=== PATIENT | female | born 1955 | race Caucasian/White ===

== ENCOUNTER 2019-05-06 04:46 | Emergency (ER) | payer MEDICAID ==
[~2019-05-06] VITALS: Ht 162.6 cm; Wt 80.9 kg
[~2019-05-06 04:46] MED LIST: ASPI-903 PO; IBUP-1542 PO; LANT3I SC; LEVO75TA5 PO; LISI-313 PO; OXYC-279 PO; SITA1TAB5 PO
[2019-05-06 04:52] VITALS: Ht 162.6 cm; Wt 80.9 kg
[2019-05-06] MEDS ORDERED: ONDANSETRON 4 MG INJ IV STA (05:14)
[2019-05-06] MEDS ORDERED: morphine 4 MG/ML VIAL IV STA (05:14)
[2019-05-06 06:45] VITALS: BP 129/64; PULSE 59; RESP 18
--- NOTE | 2019-05-06 08:16 | ERD ---
ER Documentation Chief Complaint Chief Complaint LEFT ANKLE INJ S/P MECH FALL X5MINS AGO; ON BLOOD THINNERS; DEFORMITY NOTED HPI This is a 63-year-old woman complaining of left ankle pain and swelling after mechanical fall down some stairs. She does recall the entire episode and denies head or neck injury, no loss of consciousness, no complaints of chest pain or shortness of breath. Patient denies paresis or paresthesias. ROS All systems reviewed and are negative except as per history of present illness. Medications Home Meds Active Scripts Oxycodone HCl/Acetaminophen (Percocet 5-325 mg Tablet) 1 Each Tablet, 1 EACH PO TID PRN for PAIN LEVEL 6-10, #9 TAB Prov:CHAPIS CHIN MD 05/06/19 Ibuprofen* (Motrin*) 600 Mg Tab, 600 MG PO Q8 PRN for PAIN AND/OR INFLAMMATION, #30 TAB Prov:CHAPIS CHIN MD 05/06/19 Reported Medications Levothyroxine Sodium* (Levothyroxine Sodium*) 75 Mcg Tablet, 75 MCG PO BEFORE BREAKFAST, #30 TAB 08/25/16 Lisinopril* (Lisinopril*) 5 Mg Tablet, 5 MG PO DAILY, #30 TAB 08/25/16 Aspirin* (Aspirin* Chew) 81 Mg Tab.chew, 81 MG PO DAILY, TAB.CHEW 08/25/16 Insulin Glargine* (Lantus*) 100 Unit/Ml Soln, 40 UNIT SC BID, #1 VIAL 08/25/16 Sitagliptin Phos/Metformin HCl (Janumet 50-1,000 mg Tablet) 1 Each Tablet, 1 EACH PO BID, TAB 08/25/16 Allergies Allergies: Coded Allergies: No Known Allergy (Unverified , 09/04/13) PMhx/Soc Obesity, hypertension, diabetes, hypothyroidism History of Surgery: Yes () Hx Cardiac Disorders: No Hx Psychiatric Problems: No Hx Miscellaneous Medical Probl: Yes (DM II, ARTHRITIS, HYPOTHYROPID ) Hx Alcohol Use: No Hx Substance Use: No Hx Tobacco Use: No Smoking Status: Never smoker FmHx Family History: No diabetes Physical Exam Vitals Vital Signs Date Temp Pulse Resp B/P (MAP) Pulse Ox O2 O2 Flow FiO2 Time Delivery Rate 05/06/19 97.9 59 18 129/64 100 Room Air 06:45 (85) 05/06/19 97.7 67 18 144/70 99 04:52 (94) Physical Exam GENERAL: Well-developed, well-nourished, well-hydrated, in no apparent distress, looks nontoxic in appearance NEURO: Alert and oriented 3, cranial nerves II through XII intact bilaterally, pupils equal round reactive to light, no focal deficits or facial asymmetry, sensation intact distally Strength 5/5 in upper and lower extremities bilaterally CARDIAC: Regular rate and rhythm, no murmurs rubs or gallops LUNGS: Clear bilaterally no wheezing crackles or stridor SKIN: Warm and dry to touch, mild hematoma to the left lateral ankle, no lacerations or abrasions. EXTREMITIES: No clubbing cyanosis, soft tissue swelling to left lateral ankle with left fibular tenderness to touch, distal pulses equal bilateral PSYCH: Normal affect without agitation or irritability Results 24 hrs Current Medications Medications Dose Sig/Cristóbal Start Time Status Last (Trade) Ordered Route PRN Stop Time Admin Dose Reason Admin Morphine 4 mg ONCE STAT 05/06/19 DC 05/06/19 Sulfate IV 05:14 05/06/19 05:22 (morphine) 05:17 Ondansetron 4 mg ONCE STAT 05/06/19 DC 05/06/19 HCl (Zofran IV 05:14 05/06/19 05:22 Inj) 05:17 Procedures/MDM IV line was established patient was placed on cardiac nurse practitioner rhythm strip revealed a sinus rhythm at about 80 bpm with upright P and T waves. Patient was afebrile I administered morphine 4 mg IV, Zofran 4 mg IV Three-view x-ray of the left ankle was performed, read by me revealed transverse minimally displaced fracture to the distal left fibula with surrounding soft tissue edema, no other fractures or dislocations noted. Three-view x-ray of the left foot performed, read by me reveals a transverse distal left fibula fracture, no other fractures or dislocations noted. Patient's pain completely resolved and I applied a stirrup splint to the left lower extremity for comfort and supportive measures. Splint Assessment: Neurovascularly intact post splint placement with good fit. Patient feels much better at this time, and vital signs are normal, symptoms have improved. I did give strict instructions to return to the ED if symptoms continue or worsen, patient will otherwise follow-up with primary care phys[facility] an. Patient understood instructions and agreed to plan. Disclaimer: Inadvertent spelling and grammatical errors are likely due to EHR/dictation software use and do not reflect on the overall quality of patient care. Also, please note that the electronic time recorded on this note does not necessarily reflect the actual time of the patient encounter. Departure Diagnosis: Primary Impression: Fall Encounter type: initial encounter Qualified Codes: W19.XXXA - Unspecified fall, initial encounter Additional Impression: Left fibular fracture Encounter type: initial encounter Fibula location: distal Fracture type: closed Fracture morphology: unspecified fracture morphology Qualified Codes: S82.832A - Other fracture of upper and lower end of left fibula, initial encounter for closed fracture Condition: Good Patient Instructions: Ankle Fracture (Distal Fibula), Closed Referrals: YECENIA CHADWICK MD, DAVID MD May 06, 2019 08:16
== END 2019-05-06 07:42 | disposition home or self-care (01) ==
LOC: E/R 04:46
DX: S82.832A Other fracture of upper and lower end of left fibula, initial encounter for closed fracture (principal); I10 Essential (primary) hypertension; E11.9 Type 2 diabetes mellitus without complications; E03.9 Hypothyroidism, unspecified; E66.9 Obesity, unspecified; W10.9XXA Fall (on) (from) unspecified stairs and steps, initial encounter; Y92.9 Unspecified place or not applicable; Z68.30 Body mass index [BMI] 30.0-30.9, adult; Z79.82 Long term (current) use of aspirin; Z79.4 Long term (current) use of insulin; Z79.01 Long term (current) use of anticoagulants
CPT/HCPCS: 29515; 73610; 73630; 96374; 96375; J2270; J2405; Z7502